=== PATIENT | female | born 1990 | race Caucasian/White ===

== ENCOUNTER 2016-10-06 00:43 | Emergency (ER) | payer SELFPAY ==
[~2016-10-06] VITALS: Ht 144.8 cm; Wt 46.6 kg
[~2016-10-06 00:43] MED LIST: BACTRIM DS1 TAB PO; CEPHALEXIN500 M1 PO; CIPRO500 MG OR; CLEOCIN150 MG PO; LORTAB 5/3255 MG PO; MEDDOSEPAK PO; NAPROSYN500 MG PO; NO HOME MEDS; NO MEDS; PRILOSEC OTC20 MG OR; PRILOSEC20 MG OR; PROMETHAZINE25 MG OR; ROBITUSSIN AC10 ML OR; TORADOL PO; ZITHROMAX250 MG PO; ZOFRAN ODT8 MG PO
[2016-10-06 02:03] LABS: URINE BILIRUBIN - DIPSTICK NEGATIVE (NEGATIVE); URINE BLOOD DIPSTICK LARGE (NEGATIVE); URINE CLARITY SLIGHT CLOUDY; URINE COLOR YELLOW; URINE GLUCOSE - DIPSTICK NEGATIVE (NEGATIVE); URINE KETONE NEGATIVE (NEGATIVE); URINE PROTEIN - DIPSTICK 100 mg/dL (NEG-TRACE); URINE SPECIFIC GRAVITY 1.025
[2016-10-06 02:11] LABS: URINE LEUK ESTERASE MODERATE (NEGATIVE); URINE NITRITE - DIPSTICK POSITIVE (Negative)
[2016-10-06 02:12] LABS: URINE BACTERIA MANY hpf; URINE RBC 50-100 RBC/hpf (0-5); URINE WBC 50-100 WBC/hpf (0-5)
[2016-10-06 02:16] LABS: HEMATOCRIT 39.3 % (37.0-47.0); HEMOGLOBIN 13.4 g/dl (12.0-16.0); IMMATURE GRANULOCYTES 0.4 % (0.0-1.0); MEAN CELL VOLUME 86.2 fL CALC (80.0-100.0); MEAN CORPUSCULAR HGB 29.4 pG CALC (26.0-32.0); MEAN CORPUSCULAR HGB CONC 34.1 g/L CALC (32.0-36.0); NEUT# 7.56 thou/uL (2.00-7.15); RED BLOOD COUNT 4.56 mill/uL (4.20-5.60)
[2016-10-06 02:23] LABS: ALBUMIN 4.8 g/dL (3.2-5.0); ALKALINE PHOSPHATASE 77 u/l (38-126); AMYLASE 41 u/l (30-110); ANION GAP 15 (6-22 (CALC)); BILIRUBIN, TOTAL 0.6 mg/dL (0.0-1.4); BUN 7 mg/dL (7-17); BUN/CREATININE RATIO 12 (12-20 (CALC)); CALCIUM 9.7 mg/dL (8.4-10.2); CARBON DIOXIDE 27 mmol/l (22-30); CHLORIDE 100 mmol/l (95-108); CREATININE 0.6 mg/dL (0.5-1.0); GFR > 60 ML/MIN (>=60 (CALC)); GFR FOR AFR.AMER. > 60 ML/MIN (>=60 (CALC)); GLUCOSE 99 mg/dL (65-105); LIPASE 45 u/l (23-300); POTASSIUM 3.8 mmol/l (3.5-5.1); SGOT/AST 16 u/l (14-36); SGPT/ALT 26 u/l (9-52); SODIUM 139 mmol/l (137-146); TOTAL PROTEIN 8.4 g/dL (6.3-8.2)
[2016-10-06 03:47] LABS: COCAINE NEGATIVE (NEGATIVE); TETRAHYDROCANNABIONOL NEGATIVE (NEGATIVE)
[2016-10-06 03:48] LABS: BARBITURATES NEGATIVE (NEGATIVE); METHADONE NEGATIVE (NEGATIVE); OXCYCODONE NEGATIVE (NEGATIVE); TRICYLIC ANTIDEPRESSANTS NEGATIVE (NEGATIVE)
[2016-10-06] MEDS ORDERED: ZOFRAN ODT4 MG PO (03:53)
[2016-10-06] MEDS ORDERED: CIPROFLOXACN500 MG PO (03:53)
[2016-10-06] MEDS ORDERED: NAPROSYN500 MG PO (03:53)
[2016-10-06 04:09] VITALS: BP 144/87
== END 2016-10-06 04:21 | disposition left against medical advice (07) | DRG 690 ==
LOC: ED 00:43
PROVIDERS: Emergency Medicine
DX: N12 Tubulo-interstitial nephritis, not specified as acute or chronic (principal); B96.20 Unspecified Escherichia coli [E. coli] as the cause of diseases classified elsewhere; F17.210 Nicotine dependence, cigarettes, uncomplicated; G89.29 Other chronic pain; M54.9 Dorsalgia, unspecified; F19.10 Other psychoactive substance abuse, uncomplicated; Z91.14 Patient's other noncompliance with medication regimen
CPT/HCPCS: J1956; Q9967

== ENCOUNTER 2022-02-27 21:48 | Emergency (ER) | payer SELFPAY ==
[~2022-02-27] VITALS: Ht 144.8 cm; Wt 55.2 kg
[~2022-02-27 21:48] MED LIST changes: +CIPROFLOXACN500 MG PO; +ZOFRAN ODT4 MG PO
[2022-02-28 00:18] LABS: URINE BILIRUBIN - DIPSTICK NEGATIVE (NEGATIVE); URINE BLOOD DIPSTICK TRACE-INTACT (NEGATIVE); URINE COLOR YELLOW; URINE GLUCOSE - DIPSTICK NEGATIVE (NEGATIVE); URINE KETONE TRACE mg/dL (NEGATIVE); URINE LEUK ESTERASE NEGATIVE (NEGATIVE); URINE NITRITE - DIPSTICK NEGATIVE (Negative); URINE PROTEIN - DIPSTICK TRACE mg/dL (NEG-TRACE); URINE SPECIFIC GRAVITY 1.025; URINE UROBILINOGEN - DIPSTICK 0.2 E.U./dL (0.2)
[2022-02-28] MEDS ORDERED: ORPHENADRINE100 MG PO (00:41)
[2022-02-28] MEDS ORDERED: VOLTAREN75 MG PO (00:41)
[2022-02-28 01:09] VITALS: BP 127/89
== END 2022-02-28 01:21 | disposition home or self-care (01) | DRG 556 ==
LOC: ED 21:48
PROVIDERS: Family Medicine
DX: M25.511 Pain in right shoulder (principal); R35.0 Frequency of micturition; S16.1XXA Strain of muscle, fascia and tendon at neck level, initial encounter; X58.XXXA Exposure to other specified factors, initial encounter